=== PATIENT | female | born 1970 | race Caucasian/White ===

== ENCOUNTER 2018-11-14 18:48 | Emergency (ER) | payer MEDICAID ==
[2018-11-14] MEDS: METHOCARBAMOL 750 MG TAB PO (21:31)
[2018-11-14] MEDS: KETOROLAC 30 MG INJ IM (21:31)
== END 2018-11-14 21:37 | disposition home or self-care (01) ==
LOC: FTE 21:37
DX: S39.92XA Unspecified injury of lower back, initial encounter (principal); W20.8XXA Other cause of strike by thrown, projected or falling object, initial encounter; Y92.512 Supermarket, store or market as the place of occurrence of the external cause
CPT/HCPCS: 81025; 96372; 99284-25